=== PATIENT | female | born 1960 | race Caucasian/White ===

== ENCOUNTER 2017-11-13 19:42 | Emergency (ER) | payer BC ==
[~2017-11-13] VITALS: Ht 162.6 cm; Wt 90.3 kg
[2017-11-13 19:42] VITALS: BP 149/73
[~2017-11-13 19:42] MED LIST: ATEN50TA PO; CIPR500T94 PO; ESTR1TAB15 PO; LEVO125T PO; NEOM10DR10 OT; OMEP20TA8 PO; ONDA4TAB10 PO; ROPI1TAB2 PO; TAMS0.4C97 PO; TRAM-48 PO; TRAZ-90 PO
--- NOTE | 2017-11-13 20:40 | ED.ADGEN ---
Past History Past Medical History: Arrhythmia, Other Past Surgical History: Other Alcohol Use: None Drug Use: None Adult General Chief Complaint Chief Complaint "... I was laying tile.. and cut my thumb with the razor... 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 Pt. has 3 cm laceration. Pt. had placed glue on laceration before presenting to ED. Distal neurovascular intact. Patient denies any history immunosuppression. Patient is normally healthy. Review of Systems Review of Systems Constitutional: Denies fever or chills [] Eyes: Denies change in visual acuity, redness, or eye pain [] HENT: Denies nasal congestion or sore throat [] Respiratory: Denies cough or shortness of breath [] Cardiovascular: No additional information not addressed in HPI [] GI: Denies abdominal pain, nausea, vomiting, bloody stools or diarrhea [] : Denies dysuria or hematuria [] Musculoskeletal: Denies back pain or joint pain [] Integument: Denies rash or skin lesions [] Neurologic: Denies headache, focal weakness or sensory changes [] Endocrine: Denies polyuria or polydipsia [] All other systems were reviewed and found to be within normal limits, except as documented in this note. Family History Family History Noncontributory Current Medications Current Medications Current Medications Medications (Trade) Dose Ordered Sig/[facility] Start Time Stop Time Status Last Admin Dose Admin Bupivacaine HCl (Sensorcaine Mpf 0.5%) 30 ml 1X ONCE 11/13/17 21:00 11/13/17 21:01 DC 11/13/17 21:00 30 ML Hydrocodone Bitartrate/ Ibuprofen (Vicoprofen 7.5-200) 2 tab 1X ONCE 11/13/17 21:15 11/13/17 21:16 DC 11/13/17 20:59 2 TAB Lidocaine HCl 20 ml 1X ONCE 11/13/17 21:00 11/13/17 21:01 DC 11/13/17 21:00 20 ML Ondansetron HCl (Zofran Odt) 8 mg 1X ONCE 11/13/17 21:15 11/13/17 21:16 DC 11/13/17 20:59 8 MG Tetanus/ Diphtheria Toxoids Adsorbed (Tenivac Vial) 0.5 ml ONCE ONCE 11/13/17 21:00 4/28/18 21:01 DC Allergies Allergies Allergies Coded Allergies Type Severity Reaction Last Updated Verified codeine Allergy Intermediate 10/09/13 Yes fentanyl Adverse Reaction Intermediate 10/09/13 Yes Physical Exam Physical Exam Constitutional: Well developed, well nourished, moderately acute distress, non- toxic appearance. [] HENT: Normocephalic, atraumatic, bilateral external ears normal, oropharynx moist, no oral exudates, nose normal. [] Eyes: PERRLA, EOMI, conjunctiva normal, no discharge. [] Neck: Normal range of motion, no tenderness, supple, no stridor. [] Cardiovascular:Heart rate regular rhythm, no murmur [] Lungs & Thorax: Bilateral breath sounds equal at apexes on auscultation [] Abdomen: Bowel sounds normal, soft, no tenderness, no masses, no pulsatile masses. [] Skin: Warm, dry, no erythema, no rash. [] Laceration left thumb as per history of present illness Back: No tenderness, no CVA tenderness. [] Extremities: No tenderness, no cyanosis, no clubbing, ROM intact, no edema. [] Neurologic: Alert and oriented X 3, normal motor function, normal sensory function, no focal deficits noted. [] Psychologic: Affect normal, judgement normal, mood normal. [] Current Patient Data Vital Signs Vital Signs Date Time Temp Pulse Resp B/P (MAP) Pulse Ox O2 Delivery O2 Flow Rate FiO2 11/13/17 19:42 97.9 75 20 149/73 (98) 100 Room Air EKG EKG [] Radiology/Procedures Radiology/Procedures [] Course & Med Decision Making Course & Med Decision Making Pertinent Labs and Imaging studies reviewed. (See chart for details) Laceration repair- irrigated with normal saline- check it edges of wound with Sensorcaine and lidocaine as well as digital block. Re-irrigated and scrubbed from with Betadine surgical soap. Re-irrigated from with normal saline in range of motion. Placed 5x- 4-0 proline sutures.. Dressing applied. Patient keep wound clean and dry. Patient Tylenol and ibuprofen for pain. Patient to use Polysporin on wound 4 times a day. Sutures out in 10 days. Return of any concerns or signs of infection. Must follow-up [] Final Impression Final Impression 1. Laceration[]- 3 cm Lt thumb Problems: Dragon Disclaimer Dragon Disclaimer This electronic medical record was generated, in whole or in part, using a voice recognition dictation system. ISAMAR CAPUTO MD Nov 13, 2017 20:40
[2017-11-13] MEDS ORDERED: LIDOCAINE 2% 20 ML VIAL. IJ ONE (21:00)
[2017-11-13] MEDS ORDERED: BUPIVACAINE MPF 0.5% 30 ML VIAL. SQ ONE (21:00)
[2017-11-13] MEDS ORDERED: TETANUS AND DIPHTHERIA TOX/PF 0.5 ML VIAL. VAX IM ONE (21:00)
[2017-11-13] MEDS ORDERED: HYDROcodon/IBUPROFEN 7.5/200MG 1 TAB TABLET PO ONE (21:15)
[2017-11-13] MEDS ORDERED: ONDANSETRON ODT 4 MG TAB.RAPDIS PO ONE (21:15)
[2017-11-13] MEDS ORDERED: HYDR-79 PO (22:00)
== END 2017-11-13 22:04 | disposition home or self-care (01) ==
LOC: ER 19:42
DX: S61.012A Laceration without foreign body of left thumb without damage to nail, initial encounter (principal); Z88.5 Allergy status to narcotic agent; W26.8XXA Contact with other sharp object(s), not elsewhere classified, initial encounter; Y93.89 Activity, other specified; Y99.8 Other external cause status; Y92.89 Other specified places as the place of occurrence of the external cause
CPT/HCPCS: 12002; 99283; J3490; Q0162; J2001

== ENCOUNTER 2018-12-27 23:34 | Emergency (ER) | payer BC ==
[~2018-12-27 23:34] MED LIST changes: +HYDR-1179 PO; +TRAZ-86 PO; -TRAZ-90 PO
[2018-12-28 00:21] LABS: BILIRUBIN,URINE NEG (NEG); CLARITY,URINE CLEAR; COLOR,URINE YELLOW; GLUCOSE,URINE NEG (NEG)
[2018-12-28 00:22] LABS: BACTERIA,URINE FEW /HPF (0-FEW); NITRITE,URINE NEG (NEG); RBC,URINE RARE /HPF (0-2); SQUAMOUS EPITHELIAL CELL,UR OCC /LPF; UROBILINOGEN,URINE 0.2 mg/dL (0.2 mg/dL)
[2018-12-28 00:25] LABS: BASO % 1 % (0-3); EOS # 0.1 x10^3/uL (0.0-0.7); EOS % 1 % (0-3); HEMATOCRIT 39.2 % (36.0-47.0); HEMOGLOBIN 13.3 g/dL (12.0-15.5); LYMPH # 1.8 x10^3/uL (1.0-4.8); LYMPH % 35 % (24-48); MEAN CORPUSCULAR HEMOGLOBIN 30 pg (25-35); MEAN CORPUSCULAR HGB CONC 34 g/dL (31-37); MEAN CORPUSCULAR VOLUME 89 fL (79-100); MONO # 0.5 x10^3/uL (0.0-1.1); MONO % 9 % (0-9); NEUT # 2.8 x10^3uL (1.8-7.7); NEUT % 55 % (31-73); PLATELET COUNT 262 x10^3/uL (140-400); RED CELL DISTRIBUTION WIDTH 13.4 % (11.5-14.5); WHITE BLOOD COUNT 5.2 x10^3/uL (4.0-11.0)
[2018-12-28] MEDS ORDERED: IV NORMAL SALINE 1,000ML 1,000 ML IV SCH (00:30)
[2018-12-28] MEDS ORDERED: KETOROLAC 30 MG/ML VIAL. IV ONE (00:30)
[2018-12-28] MEDS ORDERED: ONDANSETRON PF 4 MG/2 ML VIAL. IV ONE (00:30)
[2018-12-28 00:31] LABS: ALBUMIN 3.5 g/dL (3.4-5.0); ALBUMIN/GLOBULIN RATIO 1.1 (1.0-1.7); CALCIUM 8.8 mg/dL (8.5-10.1); CREATININE 0.9 mg/dL (0.6-1.0); GFR 64.3; POTASSIUM 3.6 mmol/L (3.5-5.1); TOTAL BILIRUBIN 0.3 mg/dL (0.2-1.0); TOTAL PROTEIN 6.7 g/dL (6.4-8.2)
[2018-12-28] MEDS ORDERED: CYCL-331 PO (01:03)
--- NOTE | 2018-12-28 01:03 | PHYS DOC ---
Past History Past Medical History: Arrhythmia, Kidney Infection, Other Past Surgical History: Other Alcohol Use: None Drug Use: None Adult General Chief Complaint Chief Complaint: FLANK PAIN HPI HPI Patient is a 58 year old female who presents with complaint of bilateral flank pain. Patient states her symptoms started 2 days ago. Patient was seen by her primary doctor yesterday and started on Cipro for treatment of urinary tract infection. States that she has taken 2 doses so far for medication. States she awoke earlier this evening with moderate to severe pain in her flanks. Notes that the pain radiates around towards both sides of her abdomen. States that it is sharp and squeezing. Had associated nausea and vomiting with onset of pain. States that overall her pain symptoms have improved at this time but are still present. Denies any associated fever. States she took a tramadol prior to arrival but has not taken any other medications. Does have history of kidney stones and has had multiple CT scans in the past which have shown renal stones but no evidence of ureteral stones. Review of Systems Review of Systems Constitutional: Denies fever or chills [] Eyes: Denies change in visual acuity, redness, or eye pain [] HENT: Denies nasal congestion or sore throat [] Respiratory: Denies cough or shortness of breath [] Cardiovascular: Denies chest pain or edema[] GI: Nausea, vomiting, denies abdominal pain, bloody stools or diarrhea [] : Denies dysuria or hematuria [] Musculoskeletal: Bilateral flank pain[] Integument: Denies rash or skin lesions [] Neurologic: Denies headache, focal weakness or sensory changes [] All other systems were reviewed and found to be within normal limits, except as documented in this note. Current Medications Current Medications Current Medications Medications (Trade) Dose Ordered Sig/[facility] Start Time Stop Time Status Last Admin Dose Admin Ketorolac Tromethamine (Toradol 30mg Vial) 30 mg 1X ONCE 12/28/18 00:30 12/28/18 00:31 DC 12/28/18 00:29 30 MG Ondansetron HCl (Zofran) 4 mg 1X ONCE 12/28/18 00:30 12/28/18 00:31 DC 12/28/18 00:28 4 MG Sodium Chloride 1,000 ml @ 1,000 mls/hr Q1H 12/28/18 00:30 6/12/19 01:29 12/28/18 00:29 1,000 MLS/HR Allergies Allergies Allergies Coded Allergies Type Severity Reaction Last Updated Verified codeine Allergy Intermediate 10/09/13 Yes fentanyl Adverse Reaction Intermediate 10/09/13 Yes Physical Exam Physical Exam Constitutional: Alert, afebrile, appears in moderate discomfort. [] HENT: Normocephalic, atraumatic, bilateral external ears normal, oropharynx moist, no oral exudates, nose normal. [] Eyes: PERRLA, EOMI, conjunctiva normal, no discharge. [] Neck: Normal range of motion, no tenderness, supple, no stridor. [] Cardiovascular:Heart rate regular rhythm, no murmur [] Lungs & Thorax: Bilateral breath sounds clear to auscultation [] Abdomen: Bowel sounds normal, soft, no tenderness, no masses, no pulsatile masses. [] Skin: Warm, dry, no erythema, no rash. [] Back: Bilateral mid lumbar paraspinous muscle tenderness to palpation, no midline tenderness, no CVA tenderness, no flank ecchymosis. [] Extremities: No tenderness, no cyanosis, no clubbing, ROM intact, no edema. [] Neurologic: Alert and oriented X 3, normal motor function, normal sensory function, no focal deficits noted. [] Current Patient Data Vital Signs Vital Signs Date Time Temp Pulse Resp B/P (MAP) Pulse Ox O2 Delivery O2 Flow Rate FiO2 12/27/18 23:42 97.7 69 16 99 Room Air Lab Results Laboratory Tests Test 12/27/18 23:40 12/27/18 23:55 Urine Collection Type Unknown Urine Color Yellow Urine Clarity Clear Urine pH 7.5 Urine Specific [place] 1.015 Urine Protein Neg (NEG-TRACE) Urine Glucose (UA) Neg mg/dL (NEG) Urine Ketones (Stick) Neg mg/dL (NEG) Urine Blood Trace (NEG) Urine Nitrite Neg (NEG) Urine Bilirubin Neg (NEG) Urine Urobilinogen Dipstick 0.2 mg/dL (0.2 mg/dL) Urine Leukocyte Esterase Small (NEG) Urine RBC Rare /HPF (0-2) Urine WBC 5-10 /HPF (0-4) Urine Squamous Epithelial Cells Occ /LPF Urine Bacteria Few /HPF (0-FEW) White Blood Count 5.2 x10^3/uL (4.0-11.0) Red Blood Count 4.40 x10^6/uL (3.50-5.40) Hemoglobin 13.3 g/dL (12.0-15.5) Hematocrit 39.2 % (36.0-47.0) Mean Corpuscular Volume 89 fL (79-100) Mean Corpuscular Hemoglobin 30 pg (25-35) Mean Corpuscular Hemoglobin Concent 34 g/dL (31-37) Red Cell Distribution Width 13.4 % (11.5-14.5) Platelet Count 262 x10^3/uL (140-400) Neutrophils (%) (Auto) 55 % (31-73) Lymphocytes (%) (Auto) 35 % (24-48) Monocytes (%) (Auto) 9 % (0-9) Eosinophils (%) (Auto) 1 % (0-3) Basophils (%) (Auto) 1 % (0-3) Neutrophils # (Auto) 2.8 x10^3uL (1.8-7.7) Lymphocytes # (Auto) 1.8 x10^3/uL (1.0-4.8) Monocytes # (Auto) 0.5 x10^3/uL (0.0-1.1) Eosinophils # (Auto) 0.1 x10^3/uL (0.0-0.7) Basophils # (Auto) 0.0 x10^3/uL (0.0-0.2) Sodium Level 141 mmol/L (136-145) Potassium Level 3.6 mmol/L (3.5-5.1) Chloride Level 105 mmol/L (98-107) Carbon Dioxide Level 32 mmol/L (21-32) Anion Gap 4 (6-14) L Blood Urea Nitrogen 21 mg/dL (7-20) H Creatinine 0.9 mg/dL (0.6-1.0) Estimated GFR (Cockcroft-Gault) 64.3 BUN/Creatinine Ratio 23 (6-20) H Glucose Level 110 mg/dL (70-99) H Calcium Level 8.8 mg/dL (8.5-10.1) Total Bilirubin 0.3 mg/dL (0.2-1.0) Aspartate Amino Transferase (AST) 47 U/L (15-37) H Alanine Aminotransferase (ALT) 35 U/L (14-59) Alkaline Phosphatase 76 U/L (46-116) Total Protein 6.7 g/dL (6.4-8.2) Albumin 3.5 g/dL (3.4-5.0) Albumin/Globulin Ratio 1.1 (1.0-1.7) EKG EKG Not performed[] Radiology/Procedures Radiology/Procedures Not performed[] Course & Med Decision Making Course & Med Decision Making Pertinent Labs and Imaging studies reviewed. (See chart for details) Patient was given IV fluids, Zofran, and Toradol in the emergency department. Patient reports improvement symptoms. Vital signs are stable. The patient's blood work shows very mild evidence of dehydration. Only trace blood is seen in the patient's urinalysis which she states has been typical. Patient does not display any signs of obstructive uropathy regarding interpretation of blood work. Given history of multiple CT scans, coupled with a lower suspicion for ureteral colic, I spoke with patient regarding holding off on CT imaging today which she is in agreement. The patient's symptoms seem to be musculoskeletal in origin. We'll prescribe Flexeril and advised to take Aleve 2 tablets twice daily for the next 5-7 days for treatment of pain symptoms. Advised follow-up with primary doctor in 2 days for reevaluation and return to emergency department for any worsening symptoms. Patient was understanding and in agreement with treatment plan. Dragon Disclaimer Dragon Disclaimer This electronic medical record was generated, in whole or in part, using a voice recognition dictation system. Departure Departure: Impression: Primary Impression: Bilateral flank pain Disposition: 01 HOME, SELF-CARE Condition: IMPROVED Referrals: JACKELIN WILSON DO (PCP) Patient Instructions: Flank Pain Additional Instructions: Follow-up with your primary doctor in the next 2 days for reevaluation. You may take Aleve 2 tablets by mouth twice daily for the next 5-7 days for treatment of your pain. Return to the emergency department for any worsening symptoms. Scripts Cyclobenzaprine Hcl (CYCLOBENZAPRINE HCL) 10 Mg Tablet 1 TAB PO TID PRN for MUSCLE SPASMS, #30 TAB Prov: NADIRA GUADALUPE MD 12/28/18 NADIRA GUADALUPE MD Dec 28, 2018 01:03
[2018-12-28 01:21] VITALS: BP 138/58
== END 2018-12-28 01:50 | disposition home or self-care (01) ==
LOC: ER 23:34
DX: R10.9 Unspecified abdominal pain (principal); R11.2 Nausea with vomiting, unspecified; M54.5 Low back pain; E86.0 Dehydration; Z88.8 Allergy status to other drugs, medicaments and biological substances; Z88.5 Allergy status to narcotic agent
CPT/HCPCS: 36415; 80053; 81001; 85025; 87086; 96361; 96374; 96375; 99284; J1885; J2405; J7030

== ENCOUNTER 2021-02-09 18:00 | Emergency (ER) | payer BC ==
[~2021-02-09] VITALS: Ht 160 cm; Wt 88.1 kg
[~2021-02-09 18:00] MED LIST changes: +CYCL-331 PO; -ROPI1TAB2 PO; +ROPI1TAB4 PO; +TRAZ-125 PO; -TRAZ-86 PO
[2021-02-09] MEDS ORDERED: IBUPROFEN 600 MG TABLET. PO ONE (19:00)
--- NOTE | 2021-02-09 19:17 | RAD ---
Exam: Right RIBS 2 views INDICATION: Fall, chest pain TECHNIQUE: Frontal and oblique views of the right ribs Comparisons: None FINDINGS: No displaced rib fractures. Visualized soft tissues are unremarkable IMPRESSION: No evidence for acute fracture. Electronically signed by: Isatu Peterson MD (02/09/2021 7:14 PM) JOI
[2021-02-09] MEDS ORDERED: HYDR-2759 PO (19:48)
--- NOTE | 2021-02-09 19:54 | PHYS DOC ---
Past History Past Medical History: Arrhythmia, Kidney Infection, Other (MARY GONZALEZ APRN) Past Surgical History: Other (MARY GONZALEZ APRN) Alcohol Use: None Drug Use: None (MARY GONZALEZ APRN) General Adult EDM: Chief Complaint: MECHANICAL FALL HPI: HPI: Patient is a 60-year-old female who presents after a fall yesterday evening. Patient states she was getting out of of her [id number][employer]woy's van when she stepped down and missed the curb. Patient states she fell on her right side. Denies hitting her head or loss of consciousness. Patient states that pain is worse with taking a deep breath and movement. Denies blood thinners. Patient is alert and oriented. Patient ambulated on her own. Denies taking anything for pain. She has a history of arrhythmia, insomnia, gastric sleeve. (MARY GONZALEZ APRN) Review of Systems: Review of Systems: Constitutional: Denies fever or chills Eyes: Denies change in visual acuity HENT: Denies nasal congestion or sore throat Respiratory: Denies cough or shortness of breath Cardiovascular: Denies chest pain or edema GI: Denies abdominal pain, nausea, vomiting, bloody stools or diarrhea : Denies dysuria Musculoskeletal: Right sided tenderness Integument: Abrasion to palm of left hand Neurologic: Denies headache, focal weakness or sensory changes Endocrine: Denies polyuria or polydipsia Lymphatic: Denies swollen glands Psychiatric: Denies depression or anxiety (MARY GONZALEZ APRN) Current Medications: Current Meds: Current Medications Medications (Trade) Dose Ordered Sig/[facility] Start Time Stop Time Status Last Admin Dose Admin Ibuprofen (Motrin) 600 mg 1X ONCE 02/09/21 19:00 02/09/21 19:01 DC 02/09/21 19:10 600 MG (MARY GONZALEZ APRN) Allergies: Allergies: Allergies Coded Allergies Type Severity Reaction Last Updated Verified codeine Allergy Intermediate 10/09/13 Yes fentanyl Adverse Reaction Intermediate 10/09/13 Yes (MARY GONZALEZ APRN) Physical Exam: PE: Constitutional: Well developed, well nourished, no acute distress, non-toxic appearance. [] HENT: Normocephalic, atraumatic, bilateral external ears normal, oropharynx moist, no oral exudates, nose normal. [] Eyes: PERRLA, EOMI, conjunctiva normal, no discharge. [] Neck: Normal range of motion, no tenderness, supple, no stridor. [] Cardiovascular:Heart rate regular rhythm, no murmur [] Lungs & Thorax: Bilateral breath sounds clear to auscultation [] Abdomen: Bowel sounds normal, soft, no tenderness, no masses, no pulsatile masses. [] Skin: Warm, dry, no erythema, no rash. [] Back: No tenderness, no CVA tenderness. [] Extremities: No tenderness, no cyanosis, no clubbing, ROM intact, no edema. [] Neurologic: Alert and oriented X 3, normal motor function, normal sensory function, no focal deficits noted. [] Psychologic: Affect normal, judgement normal, mood normal. [] (MARY GONZALEZ APRN) EKG: EKG: [] (MARY GONZALEZ APRN) Radiology/Procedures: Radiology/Procedures: [] (MARY GONZALEZ APRN) Heart Score: C/O Chest Pain: No Risk Factors: Risk Factors: DM, Current or recent (<one month) smoker, HTN, HLP, family history of CAD, obesity. Risk Scores: Score 0 - 3: 2.5% MACE over next 6 weeks - Discharge Home Score 4 - 6: 20.3% MACE over next 6 weeks - Admit for Clinical Observation Score 7 - 10: 72.7% MACE over next 6 weeks - Early Invasive Strategies (MARY GONZALEZ APRN) Course & Med Decision Making: Course & Med Decision Making Pertinent Labs and Imaging studies reviewed. (See chart for details) 60-year-old female presents after a fall yesterday evening giving out of her [id number]'s van. Patient states she stepped down she missed a curb. Patient reports she fell on her right side and is having an increase in pain with taking a deep breath and certain movements. Patient did not take anything for pain prior to arrival. Patient is alert and oriented. Patient states that she slept well last night when she woke up this morning she went shopping with her daughter. this evening she felt like she started having an increase in pain and so she decided to come to the emergency room. When patient arrived in the emergency room she was yelling at registration stating that she needed to be seen immediately and demanding a wheelchair. Patient was reporting that she was unable to ambulate on her own. Upon physical assessment of patient, patient was able to ambulate from the waiting room back to [facility] area with no complications. Patient showed no signs of distress or trouble with ambulation. Patient was hemodynamically stable. Right rib x-ray ordered was negative for fracture. 600 mg of ibuprofen given. Went over results with patient. Advised her to rest, take ibuprofen and Tylenol for discomfort and to follow-up with her PCP. Patient is getting 1 hydrocodone prior to discharge and I am sending patient home with a prescription for hydrocodone until she can follow-up with her PCP. Patient is appreciative and okay with discharge plan. (MARY GONZALEZ APRN) Course & Med Decision Making Did not see or evaluate patient. Agree with [employer]'s work-up and disposition per no te. (AILIN MONTGOMERY MD) Dragon Disclaimer: Dragon Disclaimer: This electronic medical record was generated, in whole or in part, using a voice recognition dictation system. (MARY GONZALEZ APRN) Departure Departure: Impression: Primary Impression: Fall Qualified Codes: W19.XXXA - Unspecified fall, initial encounter Additional Impression: Rib contusion Qualified Codes: S20.211A - Contusion of right front wall of thorax, initial encounter Disposition: 01 HOME / SELF CARE / HOMELESS Condition: STABLE Referrals: JACKELIN WILSON DO (PCP) Patient Instructions: Fall Prevention and Home Safety, [id number], Rib Contusion Additional Instructions: You were seen in the emergency room after a fall yesterday evening. We did a rib x-ray which was negative for fracture. Its not abnormal for you to be sore after your fall. You were given 600 mg of ibuprofen and 5/325 of hydrocodone prior to discharge. 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 You can continue taking ibuprofen at home for discomfort and using ice to the area. Please return to the emergency room if you have any worsening symptoms or concerns. EMERGENCY DEPARTMENT GENERAL DISCHARGE INSTRUCTIONS Thank you for coming to [facility] (ED) today and trusting us with you care. We trust that you had a positivie experience in our Emergency Department. If you wish to speak to the department management, you may call the director at [phone]. YOUR FOLLOW UP INSTRUCTIONS ARE FOLLOWS: 1. Do you have a private Doctor? If you do not have a private doctor, please ask for a resource list of physicians or clinics that may be able to assist you with follow up care. 2. The Emergency Physician has interpreted your x-rays. The X-Ray specialist will also review them. If there is a change in the findings, you will be notified in 48 hours when at all possible. 3. A lab test or culture has been done, your results will be reviewed and you will be notified if you need a change in treatment. ADDITIONAL INSTRUCTIONS AND INFORMATION: 1. Your care today has been supervised by a physician who is specially trained in emergency care. Many problems require more than one evaluation for a complete diagnosis and treatment. We recommend that you schedule your follow up appointment as recommended to ensure complete treatment of you illness or injury. If you are unable to obtain follow up care and continue to have a problem, or if your condition worsens, we recommend that you return to the ED. 2. We are not able to safely determine your condition over the phone nor are we able to give sound medical advice over the phone. For these safety reasons, if you call for medical advice we will ask you to come to the ED for further evaluation. 3. If you have any questions regarding these discharge instructions please call the ED at [phone]. SAFETY INFORMATION: In the interest of safety, wellness, and injury prevention; we encourage you to wear your sealbelt, if you smoke; quite smoking, and we encourage family to use a protective helmet for bicycling and other sporting events that present an increased risk for head injury. IF YOUR SYMPTOMS WORSEN OR NEW SYMPTOMS DEVELOP, OR YOU HAVE CONCERNS ABOUT YOUR CONDITION; OR IF YOUR CONDITION WORSENS WHILE YOU ARE WAITING FOR YOUR FOLLOW UP APPOINTMENT; EITHER CONTACT YOUR PRIMARY CARE DOCTOR, THE PHYSICIAN WHOSE NAME AND NUMBER YOU WERE Rolan SANTACRUZ, OR RETURN TO THE ED IMMEDIATELY. Scripts Hydrocodone/Acetaminophen (Hydrocodone-Acetamin 5-325 mg) 1 Each Tablet 1 EACH PO Q4-6HRS PRN for PAIN for 3 Days, #12 TAB Prov: MARY GONZALEZ APRN 02/09/21 MARY GONZALEZ APRN Feb 09, 2021 19:53 AILIN MONTGOMERY MD Feb 09, 2021 23:48
[2021-02-09] MEDS ORDERED: HYDROcodone/APAP 5/325MG 1 TAB TABLET PO ONE (20:00)
[2021-02-09 20:15] VITALS: BP 141/97
== END 2021-02-09 20:15 | disposition home or self-care (01) ==
LOC: ER 18:00
DX: S20.211A Contusion of right front wall of thorax, initial encounter (principal); S60.512A Abrasion of left hand, initial encounter; Z88.5 Allergy status to narcotic agent; Z88.8 Allergy status to other drugs, medicaments and biological substances; W18.39XA Other fall on same level, initial encounter; Y93.89 Activity, other specified; Y92.89 Other specified places as the place of occurrence of the external cause; Y99.8 Other external cause status
CPT/HCPCS: 71100; 99283

== ENCOUNTER 2021-04-01 21:10 | Emergency (ER) | payer BC ==
[~2021-04-01] VITALS: Ht 160 cm; Wt 91.0 kg
[~2021-04-01 21:10] MED LIST changes: +HYDR-2759 PO
[2021-04-01] MEDS ORDERED: IOHEXOL 300 MG/ML 75 ML VIAL. IV ONE (21:45)
[2021-04-01] MEDS ORDERED: IV NORMAL SALINE 1,000ML 1,000 ML IV ONE (22:00)
[2021-04-01] MEDS ORDERED: ONDANSETRON PF 4 MG/2 ML VIAL. IVP ONE ×2 (22:00→22:30)
[2021-04-01 22:13] LABS: BASO % 0 % (0-3); EOS % 0 % (0-3); HEMATOCRIT 40.2 % (36.0-47.0); HEMOGLOBIN 13.6 g/dL (12.0-15.5); LYMPH # 1.5 x10^3/uL (1.0-4.8); LYMPH % 16 % (24-48); MEAN CORPUSCULAR HEMOGLOBIN 30 pg (25-35); MEAN CORPUSCULAR HGB CONC 34 g/dL (31-37); MEAN CORPUSCULAR VOLUME 90 fL (79-100); MONO # 0.9 x10^3/uL (0.0-1.1); MONO % 9 % (0-9); NEUT # 7.2 x10^3uL (1.8-7.7); NEUT % 75 % (31-73); PLATELET COUNT 312 x10^3/uL (140-400); RED CELL DISTRIBUTION WIDTH 13.3 % (11.5-14.5); WHITE BLOOD COUNT 9.7 x10^3/uL (4.0-11.0)
[2021-04-01 22:20] LABS: CALCIUM 9.2 mg/dL (8.5-10.1); GFR 56.6; POTASSIUM 3.6 mmol/L (3.5-5.1)
[2021-04-01 22:26] LABS: ALBUMIN 3.8 g/dL (3.4-5.0); ALBUMIN/GLOBULIN RATIO 1.2 (1.0-1.7); TOTAL BILIRUBIN 0.6 mg/dL (0.2-1.0)
--- NOTE | 2021-04-01 22:26 | PHYS DOC ---
Past History Past Medical History: Arrhythmia, Kidney Infection, Other Additional Past Medical Histor: esophageal erosion,restless leg syndrome,arrythmia Past Surgical History: Cholecystectomy, Hysterectomy, Other Additional Past Surgical Histo: breast implants,lap band placed/removed,gastric sleeve Alcohol Use: None Drug Use: None General Adult EDM: Chief Complaint: BACK PAIN OR INJURY HPI: HPI: 6-year-old female presents with epigastric abdominal pain, nausea, vomiting. This started earlier this morning with some mild nausea. Throughout the day she developed epigastric abdominal pain and worsening nausea. She had several episodes of vomiting since 1600. The pain is increased to be severe and cramping. She has had pain like this in the past from kidney stones. She has a long history of kidney stones, partial nephrectomy, gastric band, gastric sleeve, partial hysterectomy, appendectomy, cholecystectomy. She denies fever or chills. Review of Systems: Review of Systems: Constitutional: Denies fever or chills Eyes: Denies change in visual acuity HENT: Denies nasal congestion or sore throat Respiratory: Denies cough or shortness of breath Cardiovascular: Denies chest pain or edema GI: Epigastric abdominal pain, nausea, vomiting : Denies dysuria Musculoskeletal: Thoracic back pain Integument: Denies rash Neurologic: Denies headache, focal weakness or sensory changes Endocrine: Denies polyuria or polydipsia Lymphatic: Denies swollen glands Psychiatric: Denies depression or anxiety Current Medications: Current Meds: Current Medications Medications (Trade) Dose Ordered Sig/Maricarmen Start Time Stop Time Status Last Admin Dose Admin Iohexol (Omnipaque 300 Mg/ml) 75 ml 1X ONCE 04/01/21 21:45 04/01/21 22:08 DC Morphine Sulfate (Morphine 4mg Syringe) 4 mg 1X ONCE 04/01/21 22:30 04/01/21 22:31 UNV Ondansetron HCl (Zofran) 4 mg 1X ONCE 04/01/21 22:30 04/01/21 22:31 UNV Prochlorperazine Edisylate (Compazine) 10 mg 1X ONCE 04/01/21 22:30 04/01/21 22:31 UNV Sodium Chloride 1,000 ml @ 1,000 mls/hr 1X ONCE 04/01/21 22:00 04/01/21 22:59 04/01/21 21:53 1,000 MLS/HR Allergies: Allergies: Allergies Coded Allergies Type Severity Reaction Last Updated Verified gallium Allergy Severe Anaphylaxis 04/01/21 Yes codeine Allergy Intermediate 10/09/13 Yes Physical Exam: PE: Constitutional: Well developed, well nourished, moderate acute distress, non- toxic appearance. [] HENT: Normocephalic, atraumatic, bilateral external ears normal, oropharynx moist, no oral exudates, nose normal. [] Eyes: PERRLA, EOMI, conjunctiva normal, no discharge. [] Neck: Normal range of motion, no tenderness, supple, no stridor. [] Cardiovascular: Heart rate regular rhythm, no murmur [] Lungs & Thorax: Bilateral breath sounds clear to auscultation [] Abdomen: Bowel sounds normal, soft, epigastric tenderness, no masses, no pulsatile masses. Multiple abdominal surgical scars. [] Skin: Warm, dry, no erythema, no rash. [] Back: No tenderness, no CVA tenderness. [] Extremities: No tenderness, no cyanosis, no clubbing, ROM intact, no edema. [] Neurologic: Alert and oriented X 3, normal motor function, normal sensory function, no focal deficits noted. [] Psychologic: Affect normal, judgement normal, mood normal. [] Current Patient Data: Labs: Laboratory Tests Test 04/01/21 21:50 White Blood Count 9.7 x10^3/uL (4.0-11.0) Red Blood Count 4.50 x10^6/uL (3.50-5.40) Hemoglobin 13.6 g/dL (12.0-15.5) Hematocrit 40.2 % (36.0-47.0) Mean Corpuscular Volume 90 fL (79-100) Mean Corpuscular Hemoglobin 30 pg (25-35) Mean Corpuscular Hemoglobin Concent 34 g/dL (31-37) Red Cell Distribution Width 13.3 % (11.5-14.5) Platelet Count 312 x10^3/uL (140-400) Neutrophils (%) (Auto) 75 % (31-73) H Lymphocytes (%) (Auto) 16 % (24-48) L Monocytes (%) (Auto) 9 % (0-9) Eosinophils (%) (Auto) 0 % (0-3) Basophils (%) (Auto) 0 % (0-3) Neutrophils # (Auto) 7.2 x10^3uL (1.8-7.7) Lymphocytes # (Auto) 1.5 x10^3/uL (1.0-4.8) Monocytes # (Auto) 0.9 x10^3/uL (0.0-1.1) Eosinophils # (Auto) 0.0 x10^3/uL (0.0-0.7) Basophils # (Auto) 0.0 x10^3/uL (0.0-0.2) Sodium Level 138 mmol/L (136-145) Potassium Level 3.6 mmol/L (3.5-5.1) Chloride Level 100 mmol/L (98-107) Carbon Dioxide Level 32 mmol/L (21-32) Anion Gap 6 (6-14) Blood Urea Nitrogen 14 mg/dL (7-20) Creatinine 1.0 mg/dL (0.6-1.0) Estimated GFR (Cockcroft-Gault) 56.6 BUN/Creatinine Ratio 14 (6-20) Glucose Level 95 mg/dL (70-99) Calcium Level 9.2 mg/dL (8.5-10.1) Total Bilirubin Pending Aspartate Amino Transferase (AST) Pending Alanine Aminotransferase (ALT) Pending Alkaline Phosphatase Pending Total Protein Pending Albumin Pending Albumin/Globulin Ratio Pending EKG: EKG: [] Radiology/Procedures: Radiology/Procedures: [] Impressions: EXAM: CT Abdomen and Pelvis with IV contrast CLINICAL HISTORY: Reason: Abdominal pain, nausea, vomiting Hx: Kidney stones Omni 300 75cc / Spl. Instructions: / History: . COMPARISON: none TECHNIQUE: Helical CT of the abdomen and pelvis was performed following the administration of intravenous contrast. Axial, coronal and sagittal reformatted images were generated. PQRS compliance statement - One or more of the following individualized dose reduction techniques were utilized for this study: 1. Automated exposure control 2. Adjustment of the mA and/or kV according to patient size 3. Use of iterative reconstruction technique FINDINGS: KIDNEYS AND RENAL COLLECTING SYSTEMS RIGHT KIDNEY AND URETER: No evidence of right renal or ureteric calculi. No hydronephrosis. Numerous subcentimeter hypoattenuating cysts, too small to characterize. LEFT KIDNEY AND URETER: There is a 4 to 5 mm calculi within the proximal ureter with moderate upstream hydroureteronephrosis. Additional 3 mm nonobstructing renal stones are noted throughout the kidney. There is moderate amount of ureteral and perinephric fat stranding. The distal ureter is decompressed without additional ureteral calculi. You tiny hypoattenuating foci within the renal parenchyma, too small to characterize. URINARY BLADDER: Partially decompressed with mild circumferential wall thickening without evidence of surrounding inflammatory changes OTHER: Minimal bibasilar subsegmental atelectasis. Likely area of focal fat in the left hepatic lobe. The spleen, adrenals, and pancreas are unremarkable. Postcho lecystectomy changes are noted. Postsurgical changes of the stomach. Small/moderate hiatal hernia. No evidence of bowel obstruction or focal wall thickening to suggest acute inflammatory process. Appendix is not visualized. There is no free intra-abdominal air or free fluid. Moderate amount of fecal loading within the cecum/ascending colon predominantly. No pathologically enlarged abdominal or pelvic adenopathy. Vasculature is normal in course and caliber. Uterus is absent. No suspicious adnexal masses. Abdominal wall is unremarkable. No acute osseous abnormalities. IMPRESSION: 1. 4 to 5 mm left proximal ureteral calculi with moderate upstream hydroureteronephrosis. 2. Left renal nonobstructing nephrolithiasis. 3. Other chronic/incidental findings as above. Electronically signed by: Minal Maldonado DO (04/01/2021 11:21 PM) [facility] DICTATED AND SIGNED BY: MINAL MALDONADO DO DATE: 04/01/212310 CC: DENICE ESPINOZA DO; JACKELIN WILSON DO ~MTH0 0 Heart Score: C/O Chest Pain: N/A Risk Factors: Risk Factors: DM, Current or recent (<one month) smoker, HTN, HLP, family history of CAD, obesity. Risk Scores: Score 0 - 3: 2.5% MACE over next 6 weeks - Discharge Home Score 4 - 6: 20.3% MACE over next 6 weeks - Admit for Clinical Observation Score 7 - 10: 72.7% MACE over next 6 weeks - Early Invasive Strategies Course & Med Decision Making: Course & Med Decision Making Pertinent Labs and Imaging studies reviewed. (See chart for details) The patient's labs are unremarkable. Her creatinine is normal. Her CT scan does show a 4 to 5 mm proximal ureteral stone with hydronephrosis. See official read for more details. The size should be able to pass. I have given the patient morphine for pain control in the ER. Her pain is improved but not gone. She does not have a UTI. Was given the patient a liter normal saline. I will discharge her with [place] 7.5/325. This does not past the next few days she will likely need to follow-up with urology or nephrology. 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 She is stable for discharge at this time. [] Dragon Disclaimer: Dragon Disclaimer: This electronic medical record was generated, in whole or in part, using a voice recognition dictation system. Departure Departure: Impression: Primary Impression: Kidney stone on left side Disposition: HOME / SELF CARE / HOMELESS Condition: STABLE Referrals: JACKELIN WILSON DO (PCP) Patient Instructions: Kidney Stones, [id number] Scripts Tamsulosin Hcl (FLOMAX) 0.4 Mg Cap.er.24h 1 CAP PO DAILY for kidney stone for 10 Days, #10 CAP 11 Refills Prov: DENICE ESPINOZA DO 04/01/21 Hydrocodone/Acetaminophen (Hydrocodone-Acetamin 7.5-325) 1 Each Tablet 1 EACH PO Q6HRS PRN for PAIN, #15 TAB Prov: DENICE ESPINOZA DO 04/01/21 DENICE ESPINOZA DO Apr 01, 2021 22:26
[2021-04-01] MEDS ORDERED: PROCHLORPERAZINE 10 MG/2 ML VIAL. IV ONE (22:30)
[2021-04-01] MEDS ORDERED: MORPHINE SULFATE 4 MG/ML DISP.SYRIN. IV ONE (22:30)
[2021-04-01 23:15] LABS: BILIRUBIN,URINE NEG (NEG); CLARITY,URINE CLEAR; COLOR,URINE YELLOW; GLUCOSE,URINE NEG (NEG); NITRITE,URINE NEG (NEG); RBC,URINE >40 /HPF (0-2); UROBILINOGEN,URINE 0.2 mg/dL (0.2 mg/dL)
[2021-04-01 23:16] LABS: BACTERIA,URINE 0 /HPF (0-FEW); SQUAMOUS EPITHELIAL CELL,UR OCC /LPF; WBC,URINE OCC /HPF (0-4)
--- NOTE | 2021-04-01 23:24 | RAD ---
EXAM: CT Abdomen and Pelvis with IV contrast CLINICAL HISTORY: Reason: Abdominal pain, nausea, vomiting Hx: Kidney stones Omni 300 75cc / Spl. Ins tructions: / History: . COMPARISON: none TECHNIQUE: Helical CT of the abdomen and pelvis was performed following the administration of intrave nous contrast. Axial, coronal and sagittal reformatted images were generated. PQRS compliance statement - One or more of the following individualized dose reduction techniques wer e utilized for this study: 1. Automated exposure control 2. Adjustment of the mA and/or kV according to patient size 3. Use of iterative reconstruction technique FINDINGS: KIDNEYS AND RENAL COLLECTING SYSTEMS RIGHT KIDNEY AND URETER: No evidence of right renal or ureteric calculi. No hydronephrosis. Numerous subcentimeter hypoattenua ting cysts, too small to characterize. LEFT KIDNEY AND URETER: There is a 4 to 5 mm calculi within the proximal ureter with moderate upstream hydroureteronephrosis. Additional 3 mm nonobstructing renal stones are noted throughout the kidney. There is moderate amoun t of ureteral and perinephric fat stranding. The distal ureter is decompressed without additional ure teral calculi. You tiny hypoattenuating foci within the renal parenchyma, too small to characterize. URINARY BLADDER: Partially decompressed with mild circumferential wall thickening without evidence of surrounding infl ammatory changes OTHER: Minimal bibasilar subsegmental atelectasis. Likely area of focal fat in the left hepatic lobe. The sp elieser, adrenals, and pancreas are unremarkable. Postcholecystectomy changes are noted. Postsurgical changes of the stomach. Small/moderate hiatal hernia. No evidence of bowel obstruction or focal wall thickening to suggest acute inflammatory process. Appe ndix is not visualized. There is no free intra-abdominal air or free fluid. Moderate amount of fecal loading within the cecum/ascending colon predominantly. No pathologically enlarged abdominal or pelvi c adenopathy. Vasculature is normal in course and caliber. Uterus is absent. No suspicious adnexal masses. Abdominal wall is unremarkable. No acute osseous abnormalities. IMPRESSION: 1. 4 to 5 mm left proximal ureteral calculi with moderate upstream hydroureteronephrosis. 2. Left renal nonobstructing nephrolithiasis. 3. Other chronic/incidental findings as above. Electronically signed by: Reginald Mcadams DO (04/01/2021 11:21 PM) [facility]
[2021-04-01] MEDS ORDERED: HYDR-2763 PO (23:39)
[2021-04-01] MEDS ORDERED: TAMS0.4C97 PO (23:42)
[2021-04-01] MEDS ORDERED: rOPINIRole 0.5 MG TABLET. PO ONE (23:45)
[2021-04-01 23:50] VITALS: BP 142/84
[2021-04-02] MEDS ORDERED: HYDROcodone/APAP 7.5/325MG 1 TAB TABLET PO ONE
== END 2021-04-01 23:50 | disposition home or self-care (01) ==
LOC: ER 21:10
DX: N13.2 Hydronephrosis with renal and ureteral calculous obstruction (principal); Z90.49 Acquired absence of other specified parts of digestive tract; Z90.710 Acquired absence of both cervix and uterus; Z88.5 Allergy status to narcotic agent; Z88.8 Allergy status to other drugs, medicaments and biological substances
CPT/HCPCS: 36415; 74177; 80053; 81001; 83690; 85025; 96361; 96374; 96375; 99285; J0780; J2270; J2405; J7030; Q9967